=== PATIENT | female | born 1950 | race Caucasian/White ===

== ENCOUNTER → 2018-04-10 | Outpatient (CLI) | payer OTHER ==
[~2018-04-10] MED LIST: IOHEXOL 350mgI/ML (OMNIPAQUE) 150 ML BTL IV ONE
== END ==
LOC: FIMAGING 15:38
PROVIDERS: ATTEND Podiatrist Foot & Ankle Surgery
DX: Z13.828 Encounter for screening for other musculoskeletal disorder (principal); I70.0 Atherosclerosis of aorta; I70.1 Atherosclerosis of renal artery; K44.9 Diaphragmatic hernia without obstruction or gangrene
CPT/HCPCS: 73630; 75635; Q9967; 82565-PO

== ENCOUNTER → 2018-07-06 | Outpatient (CLI) | payer OTHER | LOC: BMCIMAGING 15:16 | PROVIDERS: ATTEND Podiatrist Foot & Ankle Surgery | DX: Z47.81 Encounter for orthopedic aftercare following surgical amputation (principal); Z89.421 Acquired absence of other right toe(s); Z89.422 Acquired absence of other left toe(s) ==